=== PATIENT | female | born 1960 | race Asian ===

== ENCOUNTER 2016-08-02 08:03 | Day surgery (SDC) | payer OTHER ==
[2016-08-01 09:18] VITALS: BMI 29.8
[2016-08-02] MEDS ORDERED: oxyCODONE HCL 5 MG TABLET PO PRN (08:54)
[2016-08-02] MEDS ORDERED: ONDANSETRON 4 MG/2 ML VIAL IVPUSH PRN (08:54)
[2016-08-02] MEDS ORDERED: BUPIVACAINE HCL/PF 0.5% (5MG/ML) 10 ML VIAL ONE (08:54)
[2016-08-02] MEDS ORDERED: LACTATED RINGERS SOLUTION 1,000 ML IV SCH (09:00)
[2016-08-02] MEDS ORDERED: DEXAMETHASONE SOD PHOSPHATE 4 MG/1 ML VIAL ONE (10:07)
[2016-08-02] MEDS ORDERED: SODIUM CHLORIDE 0.9% P/F 10 ML VIAL IJ ONE (10:07)
[2016-08-02] MEDS ORDERED: KETOROLAC TROMETHAMINE 30 MG/1 ML VIAL ONE (10:07)
[2016-08-02] MEDS ORDERED: ceFAZolin SODIUM 1 GM VIAL ONE (10:07)
[2016-08-02] MEDS ORDERED: MIDAZOLAM HCL 2 MG/2 ML SINGLE DOSE VIAL ONE (10:08)
[2016-08-02] MEDS ORDERED: ceFAZolin SODIUM 1 GM VIAL IVPB ONE (10:38)
[2016-08-02] MEDS ORDERED: BUPIVACAINE HCL/PF 0.5% (5MG/ML) 10 ML VIAL IJ ONE (11:22)
--- NOTE | 2016-08-02 11:23 | HP ---
[facility] - Chief Complaint Chief Complaint: right knee pain History of Present Illness: right knee pain, medial meniscus tear History Source: Patient Limitations to Obtaining History: No Limitations - Past Medical History Allergies/Adverse Reactions: Allergies Allergy/AdvReac Type Severity Reaction Status Date / Time No Known Drug Allergies Allergy Verified 08/01/16 09:18 - Current Medications Current Medications: Home Medications Medication Instructions Recorded Naproxen [Naprosyn -] 1 tab PO PRN 08/01/16 [facility] Physical Exam - Physical Examination Vital Signs: Vital Signs Period Temp Pulse Resp BP Sys/Reyes Pulse Ox Last 24 Hr 97.6 F 57 18 143/84 98 General Appearance: Well Nourished ENT: Clear Lung: Clear to auscultation Heart: Regular rate & rhythm Breasts: Soft Abdomen: Soft Extremities: No edema [facility] Impression/Plan - Impression/Plan Impression: right knee pain, medial meniscus tear, OA Operative Procedure: right knee arthoscopy, partial medial meniscectomy, debridement chondroplasty Date to be Performed: 08/02/16
--- NOTE | 2016-08-02 11:27 | OP ---
Operative Note - Note: Operative Date: 08/02/16 Pre-Operative Diagnosis: right knee pain, medial meniscus tear, OA Operation: right knee arthroscopy, partial medial meniscectomy, debridement chondroplasty Post-Operative Diagnosis: Same as Pre-op Surgeon: Adrian Leung Anesthesiologist/ADMINISTRATIVE SERVICES ASSISTANT: Travis Hurd Jr. Anesthesia: General, Local Specimens Removed: shavings Estimated Blood Loss (mls): 0 Blood Volume Replaced (mls): 0 Fluid Volume Replaced (mls): 500 Operative Report Dictated: Yes
[2016-08-02] MEDS ORDERED: oxyCODONE HCL 5 MG TABLET ONE (13:33)
[2016-08-02 13:50] VITALS: TEMP 97.6
[2016-08-02 15:56] VITALS: BP 119/75; PULSE 64
--- NOTE | 2016-08-03 07:27 | OP ---
DATE OF OPERATION: 08/02/2016 PREOPERATIVE DIAGNOSIS: Right knee pain, medial meniscus tear, and osteoarthritis. POSTOPERATIVE DIAGNOSIS: Right knee pain, medial meniscus tear, and osteoarthritis. PROCEDURE: Right knee arthroscopy, partial medial meniscectomy, and debridement chondroplasty. SURGEON: Kelby Lizarraga MD CRAYON SAWYER: None. WIRE THREADER: Travis Hurd Jr., CRNA ANESTHESIA: LMA anesthesia and local injection of 20 mL 0.5% Marcaine and 1% lidocaine mixed. DRAINS: None. COMPLICATIONS: None. SPECIMENS: Arthroscopic shavings. BLOOD LOSS: None. BLOOD GIVEN: None. FLUID REPLACEMENT: 500 mL. INDICATIONS: This patient is a 55-year-old male with a preoperative diagnosis of right knee pain. Preoperative MRI shows medial meniscus tear and osteoarthritis. After understanding the potential risks, complications, alternatives, and benefits of surgery versus nonsurgical treatment, the patient elected to undergo this procedure. DESCRIPTION OF PROCEDURE: The patient was brought to the operating room, peripheral IV placed, IV sedation was given. One gram of IV Ancef was given. LMA anesthesia was induced. Ample Webril was placed on the right thigh. Tourniquet was applied. Styrofoam ring was applied. The right lower extremity was put into a C-clamp leg-alberto, prepped and draped in sterile fashion. It was elevated, exsanguinated with an Esmarch bandage, and tourniquet inflated to 275 mmHg. A superomedial outflow portal was established, lateral portal was established, and under direct visualization, using a spinal needle, medial portal was established. A diagnostic arthroscopy was performed. Patient was seen to have a significant complex tear of the body and posterior horn of the medial meniscus. Therefore, curved shaver was introduced into the joint as well as upbiting forceps, and a partial medial meniscectomy was performed. Photographs taken before and after. The patient unfortunately did have areas of grade 4 chondromalacia of the medial tibial plateau and medial femoral condyle. Photographs were taken, and debridement chondroplasty was performed. The intercondylar notch looked good. The ACL had the appropriate tension and was probed. The lateral compartment looked good. There was no arthritis, and the lateral meniscus looked fine. The patient had significant chondromalacia of the undersurface of the patella. Therefore, debridement chondroplasty was performed here, as well. The patient also had significant grade 4 osteoarthritis, which was widespread, in the femoral trochlea. Debridement chondroplasty was performed here, as well. The area was copiously irrigated and washed out. Additional debris and floating pieces of cartilage were removed. All excess saline removed. Arthroscopic portals were closed with 3-0 nylon sutures. Then, 20 mL of 0.5% Marcaine was introduced into the joint. The area was then washed and dried and covered with Xeroform, 4 x 4 gauze, Webril, and a 6-inch Parmjit bandage. Tourniquet was taken down after a total tourniquet time of 20 minutes There were no complications during the case. The patient tolerated the procedure well, was brought to the ambulatory recovery room in stable condition. KELBY LIZARRAGA M.D. [id number]
--- NOTE | 2016-08-03 14:37 | PATH ---
Surgical Pathology Report Patient Name: GRACIE GEORGE [facility]. Rec. #: [id number] /Age/Gender: 1960 (Age: 55) / F Account: [id number] Location: [facility] SURGICAL Taken: 08/02/2016 Received: 08/02/2016 Reported: 08/03/2016 Physicians: Adrian Leung M.D. 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 Electronically Signed Dann Carvajal M.D. Gross Description Received in formalin, labeled "right knee shavings" is a 4.0 x 3.0 x 0.4 cm aggregate of wolf-yellow soft tissue fragments. A artist representative portion is submitted in one cassette. /08/02/201608/02/2016
== END 2016-08-02 15:15 | disposition home or self-care (01) ==
LOC: JASU-SURG 08:03
PROVIDERS: ATTEND Orthopaedic Surgery
PROC: 0SBC4ZZ Excision of Right Knee Joint, Percutaneous Endoscopic Approach (ICD-10-PCS; 2016-08-02)
PROC: 0SBC4ZZ Excision of Right Knee Joint, Percutaneous Endoscopic Approach (ICD-10-PCS; principal; 2016-08-02 09:45)
DX: M23.221 Derangement of posterior horn of medial meniscus due to old tear or injury, right knee (principal); M17.11 Unilateral primary osteoarthritis, right knee; M22.41 Chondromalacia patellae, right knee
CPT/HCPCS: 29881; G0289; 88304-TC; 94760; 97116-GP